=== PATIENT | male | born 1950 | race Caucasian/White ===

== ENCOUNTER → 2018-10-15 | Outpatient (CLI) | payer MEDICARE ==
--- NOTE | 2018-10-15 11:17 | RAD ---
2 view chest INDICATION: Cough, fever, possible pneumonia COMPARISON STUDY: None available FINDINGS: No pneumothorax or pleural effusion is seen. There is significant diffuse interstitial coarsening. Some relative apical lucencies seen. Findings may represent interstitial lung disease, emphysema, or in the appropriate clinical setting and atypical/interstitial pneumonia. Heart size is normal. Bony thorax is grossly intact. IMPRESSION: Diffuse interstitial thickening the appearance of which suggest interstitial lung disease or emphysema. In the appropriate clinical setting an acute atypical interstitial pneumonia is possible. Short-term interval follow-up radiograph may be helpful. If appearance persists, no comparisons are available CT imaging may be helpful. Electronically signed by: Sebastian Giron MD (10/15/2018 11:14 AM) [id number]
== END | disposition home or self-care (01) ==
LOC: RAD 10:19
PROVIDERS: ATTEND Family Medicine
DX: J84.9 Interstitial pulmonary disease, unspecified (principal)
CPT/HCPCS: 71046